=== PATIENT | female | born 1960 | race Caucasian/White ===

== ENCOUNTER 2022-06-27 09:33 | Outpatient (CLI) | payer MEDICARE | END 2022-06-27 09:34 | disposition home or self-care (01) | LOC: CSHMRI 09:33 | PROVIDERS: ATTEND Psychiatry & Neurology Neurology | DX: I95.1 Orthostatic hypotension (principal) | CPT/HCPCS: 70553; 82565 ==

== ENCOUNTER 2024-01-21 12:05 | Inpatient (IN) | payer MEDICARE, OTHER ==
[2024-01-21] MEDS ORDERED: Cefepime 2 GM VIAL ONE (13:03)
[2024-01-21 13:11] LABS: Actual Bicarbonate (HCO3v) 23.6 mEq/L (22-28); Analyzer IN Cardio CS ER; Base Excess -2.2 mEq/L (-2 - +2); Calcium, Ionized (venous) 1.18 mmol/L (1.16-1.32); Chloride (VBG) 99 mmol/L (98-106); Critical Notified By: ASANCHEZ RT; Hematocrit-VBG 46 % (36.0-47.0); Hemoglobin (Hb) 15.7 g/dL (11.7-16.1); Potassium (VBG) 4.38 mmol/L (3.70-5.30); Puncture Site Other Site; RapidComm Collect By LAB.CB1; Sodium 140 mmol/L (133-146); pH (venous) 7.346 (7.32-7.43)
[2024-01-21 13:14] LABS: #Basophils 0.1 10x3/uL (0.0-0.2); #Eosinphils 0.1 10x3/uL (0.0-0.5); #Monocytes 0.9 10x3/uL (0.0-1.1); #Neutrophils 9.5 10x3/uL (1.5-8.4); %Basophils 0.5 % (0.0-2.0); %Eosinophils 0.5 % (0.0-6.0); %Lymphocytes 13.4 % (18.0-47.0); %Monocytes 7.3 % (0.0-10.0); %Neutrophils 77.9 % (40.0-75.0); Hematocrit 43.6 % (34.9-44.5); Mean Corpuscular HGB CONC 34.4 g/dL (32.0-36.0); Mean Corpuscular Hemoglobin 30.3 pg (27.0-33.0); Mean Corpuscular Volume 88.1 fl (81.6-98.3); Platelet Count 347 10x3/uL (150-450); RBC Distribution Width 13.5 % (11.5-14.5); Red Blood Cell (RBC) Count 4.95 10x6/uL (3.90-5.03); White Blood Cell (WBC) Count 12.2 10x3/uL (3.5-10.5)
[2024-01-21 13:25] LABS: ALT (SGPT) 9 U/L (8-55); AST (SGOT) 21 U/L (5-34); Albumin 4.2 g/dL (3.4-4.8); Alkaline Phosphatase 64 U/L (40-110); Anion Gap 20 mmol/L (10-20); BUN (Urea Nitrogen) 21 mg/dL (9.8-20.1); Bilirubin, Total 0.5 mg/dL (0.2-1.2); Calc. Creatinine Clearance 0 mL/min (70-130); Calcium 9.4 mg/dL (7.8-10.44); Carbon Dioxide 19 mmol/L (23-31); Chloride 102 mmol/L (98-107); Estimated GFR 94; Globulin 2.9 g/dL (2.4-3.5); Glucose 110 mg/dL (80-115); Protein, Total 7.1 g/dL (5.8-8.1); Sodium 136 mmol/L (136-145)
[2024-01-21 13:33] LABS: Troponin I 0.269 ng/mL (< 0.028)
[2024-01-21] MEDS ORDERED: NOREPINEPHRINE 8 MG/250 ML-D5W 250 ML ONE (13:36)
[2024-01-21 13:40] LABS: Bilirubin Neg (Negative); Blood, Urine 150 (Negative); Clarity Slightly Cloudy (Clear); Glucose, Urine (Dipstick) Normal (Negative); Ketone, Urine Negative (Negative); Leukocyte 25 (Negative); Nitrite Positive (Negative); Protein, Urine (Dipstick) 500 mg/dl (Neg-Trace); Urobilinogen Normal mg/dL (Less than 2)
[2024-01-21 13:58] LABS: CAUTI Indications for Culture < 2yrs of age; RBC/HPF 21-50 HPF (0-3); WBC/HPF 0-3 HPF (0-3)
[2024-01-21 13:59] LABS: Bacteria/HPF 4+ HPF (None Seen); Squamous Epithelial 0-3 HPF (0-3)
[2024-01-21 14:00] LABS: Urine Culture Reflex Yes Yes
[2024-01-21] MEDS ORDERED: Moisturizing Cream (Eucerin) 113 GM JAR TOP PRN (15:22)
[2024-01-21] MEDS ORDERED: Acetaminophen 325 MG TAB PO PRN (15:22)
[2024-01-21] MEDS ORDERED: Nitroglycerin 0.4 MG TAB (25 Tab Bottle) SL PRN (15:22)
[2024-01-21] MEDS ORDERED: Artificial Tear Sol 15 ML BOT EA EYE PRN (15:22)
[2024-01-21] MEDS ORDERED: Ondansetron ODT 4 MG TAB PO PRN (15:22)
[2024-01-21] MEDS ORDERED: Acetaminophen 650 MG Suppository PR PRN (15:22)
[2024-01-21] MEDS ORDERED: NOREPINEPHRINE 8 MG/250 ML-D5W 250 ML IVPB SCH (15:30)
[2024-01-21 16:04] LABS: Lactic Acid 1.1 mmol/L (0.5-2.2)
[2024-01-21 16:36] LABS: Troponin I 0.265 ng/mL (< 0.028)
[2024-01-21] MEDS ORDERED: Aspirin 325 MG TAB ONE (17:45)
[2024-01-21] MEDS: Aspirin 325 MG TAB PO SCH (17:51)
[2024-01-21] MEDS: Lactated Ringer's 1,000 ML IV SCH (17:52)
[2024-01-21 19:00] VITALS: BMI 27.1
[2024-01-21] MEDS: Gabapentin 300 MG CAP PO SCH (20:28)
[2024-01-21] MEDS: Famotidine 20 MG TAB PO SCH (20:28)
[2024-01-21] MEDS: Baclofen 10 MG TAB PO SCH (20:29)
[2024-01-21] MEDS: Midodrine HCl 2.5 MG TAB PO SCH ×2 (20:29→20:34)
[2024-01-22] MEDS: Cefepime 2 GM in Sodium Chloride 0.9% 100 ML IVPB SCH (01:46)
[2024-01-22 03:37] LABS: #Eosinphils 0.2 10x3/uL (0.0-0.5); #Monocytes 0.5 10x3/uL (0.0-1.1); #Neutrophils 3.4 10x3/uL (1.5-8.4); %Basophils 0.5 % (0.0-2.0); %Eosinophils 2.8 % (0.0-6.0); %Lymphocytes 29.1 % (18.0-47.0); %Neutrophils 59.4 % (40.0-75.0); Hemoglobin 12.3 g/dL (12.0-15.5); Mean Corpuscular HGB CONC 33.2 g/dL (32.0-36.0); Mean Corpuscular Hemoglobin 29.6 pg (27.0-33.0); Mean Corpuscular Volume 88.9 fl (81.6-98.3); Mean Platelet Volume 9.8 fl (7.4-10.4); Platelet Count 262 10x3/uL (150-450); RBC Distribution Width 13.6 % (11.5-14.5); Red Blood Cell (RBC) Count 4.16 10x6/uL (3.90-5.03); White Blood Cell (WBC) Count 5.8 10x3/uL (3.5-10.5)
[2024-01-22 03:49] LABS: Anion Gap 14 mmol/L (10-20); BUN (Urea Nitrogen) 16 mg/dL (9.8-20.1); Calc. Creatinine Clearance 113 mL/min (70-130); Calcium 8.6 mg/dL (7.8-10.44); Carbon Dioxide 23 mmol/L (23-31); Cardiac Risk 3.5 (Less than 4.5); Chloride 108 mmol/L (98-107); Cholesterol 150 mg/dl (< 200 Desired); Estimated GFR 103; Glucose 107 mg/dL (80-115); HDL Cholesterol 43 mg/dL (>60 Neg Risk); LDL Cholesterol, Calculated 95 mg/dL; Potassium 4.4 mmol/L (3.5-5.1); Sodium 141 mmol/L (136-145); Triglycerides 59 mg/dL (Less than 150)
[2024-01-22] MEDS: Levothyroxine Sodium 112 MCG TAB PO SCH (06:44)
[2024-01-22] MEDS: Levothyroxine Sodium 25 MCG TAB PO SCH (06:45)
[2024-01-22] MEDS: Enoxaparin 40 MG (0.4 mL) SYRINGE SC SCH (08:09)
[2024-01-22] MEDS: Multivit, Therapeutic 1 TAB PO SCH (08:10)
[2024-01-22] MEDS: Aspirin Chewable 81 MG TAB PO SCH (08:10)
[2024-01-22] MEDS ORDERED: Levothyroxine Sodium 100 MCG TAB PO SCH (09:00)
[2024-01-22] MEDS: Floranex 1 GM Packet PO SCH (15:13)
[2024-01-22 19:05] VITALS: TEMP 98
[2024-01-22 19:06] VITALS: BP 112/46
[2024-01-23 04:32] LABS: #Eosinphils 0.2 10x3/uL (0.0-0.5); #Monocytes 0.4 10x3/uL (0.0-1.1); %Basophils 0.6 % (0.0-2.0); %Eosinophils 3.7 % (0.0-6.0); %Lymphocytes 24.1 % (18.0-47.0); %Monocytes 6.8 % (0.0-10.0); %Neutrophils 64.6 % (40.0-75.0); Hematocrit 40.4 % (34.9-44.5); Hemoglobin 13.1 g/dL (12.0-15.5); Mean Corpuscular HGB CONC 32.4 g/dL (32.0-36.0); Mean Corpuscular Hemoglobin 29.4 pg (27.0-33.0); Mean Corpuscular Volume 90.8 fl (81.6-98.3); Mean Platelet Volume 9.7 fl (7.4-10.4); Platelet Count 224 10x3/uL (150-450); RBC Distribution Width 13.8 % (11.5-14.5); Red Blood Cell (RBC) Count 4.45 10x6/uL (3.90-5.03); White Blood Cell (WBC) Count 6.2 10x3/uL (3.5-10.5)
[2024-01-23 04:44] LABS: Anion Gap 12 mmol/L (10-20); BUN (Urea Nitrogen) 15 mg/dL (9.8-20.1); Calc. Creatinine Clearance 119 mL/min (70-130); Calcium 8.8 mg/dL (7.8-10.44); Carbon Dioxide 25 mmol/L (23-31); Chloride 107 mmol/L (98-107); Estimated GFR 104; Glucose 107 mg/dL (80-115); Potassium 4.6 mmol/L (3.5-5.1); Sodium 139 mmol/L (136-145)
[2024-01-23] MEDS: Floranex 1 GM Packet PO SCH (08:11)
[2024-01-23] MEDS: Bisacodyl 10 MG SUPP PR PRN (08:45)
== END 2024-01-23 11:52 | disposition home or self-care (01) | DRG 312 ==
LOC: CSHERS 12:05 → CSHERHOLD 12:39 → CSHIMCU 18:37
PROVIDERS: ADMIT Family Medicine; ATTEND Hospitalist
PROC: 3E033XZ Introduction of Vasopressor into Peripheral Vein, Percutaneous Approach (ICD-10-PCS; principal; 2024-01-21)
DX: R55 Syncope and collapse (principal); G82.50 Quadriplegia, unspecified; E87.20 Acidosis, unspecified; E03.9 Hypothyroidism, unspecified; Z90.49 Acquired absence of other specified parts of digestive tract; Z98.890 Other specified postprocedural states; Z66 Do not resuscitate; I95.89 Other hypotension; Z86.711 Personal history of pulmonary embolism; Z79.899 Other long term (current) drug therapy; G90.1 Familial dysautonomia [Riley-Day]
CPT/HCPCS: 36415; 36416; 71045; 71275; 80048; 80053; 80061; 81001; 82805; 83605; 84145; 84484; 85025; 87040; 87086; 93005; 93306; 97139; J0692; J1650; J3490; J7120

== ENCOUNTER 2024-02-18 13:56 | Outpatient (CLI) | payer MEDICARE | END 2024-02-18 13:57 | disposition home or self-care (01) | LOC: CSHULT 13:56 | PROVIDERS: ATTEND Obstetrics & Gynecology | DX: N98.8 Other complications associated with artificial fertilization (principal) | CPT/HCPCS: 76856 ==

== ENCOUNTER 2024-09-21 09:09 | Outpatient (CLI) | payer MEDICARE | END 2024-09-21 09:10 | disposition home or self-care (01) | LOC: CSHULT 09:09 | PROVIDERS: ATTEND Urology | DX: N31.9 Neuromuscular dysfunction of bladder, unspecified (principal) | CPT/HCPCS: 76770 ==